=== PATIENT | male | born 1995 | race Caucasian/White ===

== ENCOUNTER 2018-05-28 20:39 | Emergency (ER) | payer SELFPAY ==
--- NOTE | 2018-05-28 20:52 | EDM.PDOC ---
ED HPI GENERAL MEDICAL PROBLEM - General Chief Complaint: Lower Extremity Injury/Pain Stated Complaint: RT LEG HURTS Time Seen by Provider: 05/28/18 20:48 Source of Information: Reports: Patient History Limitations: Reports: No Limitations - History of Present Illness INITIAL COMMENTS - FREE TEXT/NARRATIVE: HISTORY AND PHYSICAL: History of present illness: Patient is a 22-year-old male here with complaint of right ankle injury. [place] [employer] [place] was doing a "trick" landing wrong on his right ankle and felt a pop. He was able to walk on it afterwards but not able to bear full weight. Denies proximal knee or hip pain. Review of systems: As per history of present illness and below otherwise all systems reviewed and negative. Past medical history: As per history of present illness and as reviewed below otherwise noncontributory. Surgical history: As per history of present illness and as reviewed below otherwise noncontributory. Social history: No reported history of drug or alcohol abuse. Family history: As per history of present illness and as reviewed below otherwise noncontributory. Physical exam: General: Patient sitting comfortably in no acute distress and nontoxic appearing HEENT: Atraumatic, normocephalic, pupils reactive, negative for conjunctival pallor or scleral icterus, mucous membranes moist, throat clear, neck supple, nontender, trachea midline. No meningeal signs. Lungs: Clear to auscultation, breath sounds equal bilaterally, chest nontender. Heart: S1S2, regular, negative for clicks, rubs, or overt murmur. Abdomen: Soft, nondistended, nontender. Negative for masses or hepatosplenomegaly. Negative for costovertebral tenderness. No rigidity, rebound , guarding. Pelvis: Stable nontender. Genitourinary: Deferred. Rectal: Deferred. Extremities: Lateral aspect of right ankle is swollen. Pain with distal tib fib squeeze, no proximal tib fib tenderness and no knee pain. Atraumatic, negative for cords or calf pain. Neurovascular unremarkable. Neuro: Awake, alert, oriented. Cranial nerves II through XII unremarkable. Cerebellum unremarkable. Motor and sensory unremarkable throughout. Exam nonfocal. Notes: Diagnostics: x-ray right ankle Therapeutics: CAM boot Crutches Prescriptions: None Impression: Ankle injury Plan: 1. Ice, elevate, and motrin or tylenol as needed 2. Follow up with primary care provider or orthopedics, please call to schedule an appointment 3. Return to ED as needed as discussed Definitive disposition and diagnosis as appropriate pending reevaluation and review of above. right ankle Pain Score (Numeric/FACES): 3 - Related Data Allergies Allergy/AdvReac Type Severity Reaction Status Date / Time No Known Allergies Allergy Verified 05/28/18 20:45 Home Meds: Home Meds . [No Known Home Meds] 05/28/18 [History] Review of Systems - Review of Systems Review Of Systems: ROS reveals no pertinent complaints other than HPI. ED EXAM, GENERAL - Physical Exam Exam: See Below (see dictation) Course - Vital Signs Last Recorded V/S: Last Vital Signs Temp Pulse 100 05/28/18 20:46 Resp 20 05/28/18 20:46 BP 136/99 H 05/28/18 20:46 Pulse Ox 99 05/28/18 20:46 - Orders/Labs/Meds Orders: Active Orders 24 hr Category Date Time Status Ankle Min 3V Rt [CR] Stat Exams 05/28/18 20:48 Ordered Departure - Departure Time of Disposition: 21:03 Disposition: Home, Self-Care 01 Condition: Good Clinical Impression: Right ankle injury - Discharge Information Referrals: PCP,None [Primary Care Provider] - Forms: ED Department Discharge Additional Instructions: The following information is given to patients seen in the emergency department who are being discharged to home. This information is to outline your options for follow-up care. We provide all patients seen in our emergency department with a follow-up referral. The need for follow-up, as well as the timing and circumstances, are variable depending upon the specifics of your emergency department visit. If you don't have a primary care physician on staff, we will provide you with a referral. We always advise you to contact your personal physician following an emergency department visit to inform them of the circumstance of the visit and for follow-up with them and/or the need for any referrals to a consulting specialist. The emergency department will also refer you to a specialist when appropriate. This referral assures that you have the opportunity for follow-up care with a specialist. All of these measure are taken in an effort to provide you with optimal care, which includes your follow-up. Under all circumstances we always encourage you to contact your private physician who remains a resource for coordinating your care. When calling for follow-up care, please make the office aware that this follow-up is from your recent emergency room visit. If for any reason you are refused follow-up, please contact the [facility] Emergency Department at and asked to speak to the emergency department charge nurse. [facility] [address] [place] [address] [facility] [address] [place] [id number] [facility] [address] [place] [address], [address] [place] [address] 1. Ice, elevate, and motrin or tylenol as needed 2. Follow up with primary care provider or orthopedics, please call to schedule an appointment 3. Return to ED as needed as discussed - My Orders Last 24 Hours: My Active Orders 05/28/18 20:48 Ankle Min 3V Rt [CR] Stat - Assessment/Plan Last 24 Hours: My Active Orders 05/28/18 20:48 Ankle Min 3V Rt [CR] Stat
--- NOTE | 2018-05-28 21:43 | CR ---
INDICATION: Trauma. Pain. Soft tissue swelling. TECHNIQUE: Three views of the right ankle. FINDINGS: There is a large amount of soft tissue swelling about the right lateral malleolus. No fracture or dislocation. No erosion. The tibiotalar joint space is intact. IMPRESSION: Significant soft tissue swelling right lateral malleolus. Examination is otherwise negative. Dictated by Lai Hylton MD @ May 28 2018 9:41PM Signed by Dr. Lai Hylton @ May 28 2018 9:42PM
== END 2018-05-28 22:14 | disposition home or self-care (01) ==
LOC: MW.ED 20:39
DX: S99.911A Unspecified injury of right ankle, initial encounter (principal); X50.9XXA Other and unspecified overexertion or strenuous movements or postures, initial encounter; Y93.44 Activity, trampolining
CPT/HCPCS: 73610-26-RT; 73610-RT; 99283; 99283-25